=== PATIENT | female | born 1950 | race Two or more races ===

== ENCOUNTER 2021-06-02 15:20 | Outpatient (REF) | payer MEDICARE, SELFPAY ==
[2021-06-02 15:28] LABS: Appearance Urine CLOUDY; Color Urine YELLOW; Glucose Urine UA NEG (NEG); Leukocyte Esterase Urine 2+ (NEG); Nitrite Urine NEG (NEG); Specific Gravity - Urine 1.025 (1.005-1.025); UACC Culture Trigger YES; Urine Blood 2+ (NEG); Urine Ketones NEG (NEG); Urine Protein TRACE MG/DL (NEG-TRACE)
[2021-06-02 15:36] LABS: WBC Urine TNTC /HPF (0-4)
[2021-06-02 15:37] LABS: RBC Urine 0 /HPF (0)
== END 2021-06-02 15:21 | disposition home or self-care (01) ==
LOC: HO.LNP 15:20
PROVIDERS: Visit Provider Internal Medicine
DX: N39.0 Urinary tract infection, site not specified (principal)
CPT/HCPCS: 81001; 87086

== ENCOUNTER 2021-11-26 09:56 | Emergency (ER) | payer MEDICARE, SELFPAY ==
--- NOTE | ~2021-11-26 | XR_ITS ---
EXAMINATION: XR LUMBOSACRAL SPINE CLINICAL INFORMATION: Left-sided lower back pain after physical therapy. COMPARISON: None TECHNIQUE: Three views of the lumbosacral spine. FINDINGS: There is maintained lumbar lordosis. There is minimal levoscoliosis. There is old compression fracture T12 vertebra with cement augmentation. There is no acute fracture, dislocation. There is loss of L5-S1 disc height. Rest the disc heights are normal. Moderate ventral spondylosis lower dorsal and upper lumbar spine. There is atherosclerotic calcification of abdominal aorta. XR/XR lumbar spine 2-3V IMPRESSION: Old compression fracture T12 vertebra. No acute compression fractures seen. There is minimal scoliosis. Mild central spondylosis lower dorsal and upper lumbar spine.
[2021-11-26 10:29] VITALS: BP 137/67; PULSE 80; RESP 18; TEMP 36.7; O2SAT 99; BMI 20.3
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
== END 2021-11-26 12:54 | disposition home or self-care (01) ==
PROVIDERS: Emergency Provider Emergency Medicine; PCP Internal Medicine
DX: S39.012A Strain of muscle, fascia and tendon of lower back, initial encounter (principal); X50.0XXA Overexertion from strenuous movement or load, initial encounter; Y93.9 Activity, unspecified; Y92.009 Unspecified place in unspecified non-institutional (private) residence as the place of occurrence of the external cause; Y99.9 Unspecified external cause status
CPT/HCPCS: 72100; 99283

== ENCOUNTER 2021-12-24 12:14 | Outpatient (REF) | payer MEDICARE, SELFPAY ==
[2021-12-24 13:57] LABS: MANUAL DIFF FLAG NO
[2021-12-24 14:14] LABS: Alanine Aminotransferase 17 U/L (0-31); Albumin Level 4.5 g/dL (3.5-5.0); Alkaline Phosphatase 55 U/L (39-117); Anion Gap 14 (12-20); Aspartate Amino Transferase 19 U/L (5-31); Bilirubin Total 0.5 mg/dL (0.0-1.0); Blood Urea Nitrogen 17 mg/dL (9-16); C Reactive Protein 0.09 mg/dL (< or = 0.50); Calcium 10.4 mg/dL (8.4-10.2); Carbon Dioxide 26 mmol/L (22-29); Chloride 105 mmol/L (96-108); Estimated Glomerular Filt Rate > 60; Glucose Random 107 mg/dL (60-115); Potassium 4.3 mmol/L (3.3-5.1); Sodium 141 mmol/L (135-145)
[2021-12-24 14:34] LABS: Ferritin 33 ng/mL (10-250); TSH reflex Free T4 1.57 uIU/mL (0.32-4.0); Vitamin D 25-OH Total 31.6 ng/mL (>30)
[2021-12-24 14:43] LABS: Basophils Absolute Auto 0.1 X10*3/uL (0.0-0.2); Basophils Percent Auto 0.7 % (0-2); Eosinophils Absolute Auto 0.4 X10*3/uL (0.0-0.4); Eosinophils Percent Auto 4.2 % (0-4); Hematocrit 38.7 % (37.0-47.0); Hemoglobin 12.2 g/dl (12.0-16.0); Imm Gran Abs Auto 0.02 X10*3/uL (0.00-0.03); Imm Gran Pct Auto 0.2 % (0.0-0.4); Lymphocytes Absolute Auto 1.7 X10*3/uL (1.2-4.9); Lymphocytes Percent Auto 20.5 % (20-40); Mean Corpuscular HGB Conc 31.5 g/dl (31.0-35.0); Mean Corpuscular Hemoglobin 30.3 pg (27.0-33.0); Mean Platelet Volume 10.3 fL (9.4-12.3); Monocytes Absolute Auto 0.7 X10*3/uL (0.1-1.2); Monocytes Percent Auto 7.9 % (2-11); Neutrophils Absolute Auto 5.6 x10*3/uL (2.0-8.3); Neutrophils Percent Auto 66.5 % (45-73); Platelet Count 307 X10*3/uL (160-400); Red Blood Count 4.03 X10*6/uL (4.20-5.50); Red Cell Distribution Width 12.7 % (11.0-16.0); White Blood Count 8.4 X10*3/uL (4.8-10.8)
[2021-12-24 15:01] LABS: Appearance Urine CLEAR; Color Urine YELLOW; Glucose Urine UA NEG (NEG); Leukocyte Esterase Urine NEG (NEG); Nitrite Urine NEG (NEG); PH 5.5 (5.0-8.0); Specific Gravity - Urine >= 1.030 (1.005-1.025); Urine Blood NEG (NEG); Urine Ketones 5 MG/DL (NEG); Urine Protein NEG (NEG-TRACE)
[2021-12-25 14:36] LABS: Transglutaminase Ab IgG <1.0 U/mL; Transglutaminase IgA <1.0 U/mL
== END 2021-12-24 12:15 | disposition home or self-care (01) ==
LOC: CF 12:14
PROVIDERS: PCP Internal Medicine; Referring Provider Internal Medicine; Visit Provider Internal Medicine Gastroenterology
DX: R10.33 Periumbilical pain (principal); R30.0 Dysuria; N39.0 Urinary tract infection, site not specified; K75.81 Nonalcoholic steatohepatitis (NASH); G89.29 Other chronic pain; R10.30 Lower abdominal pain, unspecified; M81.0 Age-related osteoporosis without current pathological fracture
CPT/HCPCS: 36415; 80053; 81003; 82306; 82728; 84443; 85025; 86140; 86364; 99202

== ENCOUNTER 2022-01-11 08:01 | Outpatient (REF) | payer MEDICARE, SELFPAY ==
--- NOTE | ~2022-01-11 | US_ITS ---
EXAMINATION: US ABDOMEN COMPLETE CLINICAL INFORMATION: Postprandial abdominal pain, lower abdomen. COMPARISON: None TECHNIQUE: Real-time imaging of the abdominal viscera. FINDINGS: PANCREAS: Pancreas could not be seen secondary to overlying bowel gas. ABDOMINAL AORTA: The proximal and distal abdominal aorta appear normal but the mid abdominal aorta was secured by bowel gas. INFERIOR VENA CAVA: Visualized portions are normal. LIVER: The liver is normal in size. The liver contour is normal. Parenchymal echogenicity is normal. No focal hepatic lesion. There is no intrahepatic biliary duct dilatation seen. GALLBLADDER: The gallbladder was not seen. COMMON BILE DUCT: Normal in caliber measuring 1.3 cm in diameter. RIGHT KIDNEY: There is a lower pole Bosniak class I 2.6 cm parapelvic cyst. No solid renal masses. No hydronephrosis or renal calculi. The kidney measures 10.1 cm in maximum dimension. LEFT KIDNEY: Normal. No hydronephrosis. No renal calculi or focal parenchymal lesions. The kidney measures 7.9 cm in maximum dimension. SPLEEN: Normal. The spleen measures 9.2 cm in maximum dimension. FREE FLUID: None. US/US abdomen complete IMPRESSION: The pancreas could not be seen. No significant abnormality is detected.
== END 2022-01-11 08:02 | disposition home or self-care (01) ==
LOC: HO.US 08:01
PROVIDERS: Visit Provider Internal Medicine Gastroenterology
DX: R10.30 Lower abdominal pain, unspecified (principal)
CPT/HCPCS: 76700

== ENCOUNTER 2022-05-24 10:05 | Outpatient (REF) | payer OTHER, SELFPAY ==
[2022-05-24 12:00] LABS: Phosphorus 2.9 mg/dL (2.7-4.5)
[2022-05-24 12:04] LABS: Appearance Urine Clear; Color Urine Yellow; Glucose Urine UA Negative (Negative); Leukocyte Esterase Urine Negative (Negative); Nitrite Urine Negative (Negative); Urine Blood Negative (Negative); Urine Ketones Negative (Negative); Urine Protein Negative (Neg-Trace)
[2022-05-29 16:52] LABS: Calcium, Ionized 4.9 mg/dL (4.8-5.6)
== END 2022-05-24 10:06 | disposition home or self-care (01) ==
LOC: HO.LAB 10:05
PROVIDERS: PCP Internal Medicine; Visit Provider Internal Medicine Gastroenterology
DX: R10.30 Lower abdominal pain, unspecified (principal); N39.0 Urinary tract infection, site not specified; E83.52 Hypercalcemia; R30.0 Dysuria
CPT/HCPCS: 36415; 81003; 82330; 84100; 99212

== ENCOUNTER 2022-08-07 09:53 | Outpatient (REF) | payer MEDICARE, SELFPAY ==
--- NOTE | ~2022-08-07 | US_ITS ---
EXAMINATION: US ABDOMEN COMPLETE CLINICAL INFORMATION: Lower abdominal pain, unspecified. COMPARISON: Ultrasound abdomen complete 01/11/2022. TECHNIQUE: Real-time imaging of the abdominal viscera. Technically difficult study secondary to bowel gas. FINDINGS: PANCREAS: Portions are obscured by overlying bowel gas with visualized portions appearing unremarkable. ABDOMINAL AORTA: The proximal, mid, and distal segments are normal in caliber. INFERIOR VENA CAVA: Visualized portions are normal. LIVER: The liver is normal in size. The liver contour is normal. Parenchymal echogenicity is normal. No focal hepatic lesion. No significant intrahepatic bile duct dilatation is appreciated. GALLBLADDER: Surgically absent. COMMON BILE DUCT: Normal in caliber measuring 1.6 cm in diameter. RIGHT KIDNEY: There is a 2.7 x 3.0 x 2.9 cm mildly complex cyst with thin septation and no internal vascularity or mural nodule with the appearance of a Bosniak 2 cyst. Follow-up is not necessary. No hydronephrosis or renal calculi. The kidney measures 9.6 cm in maximum dimension. LEFT KIDNEY: Normal. No hydronephrosis. No renal calculi or focal parenchymal lesions. The kidney measures 8.4 cm in maximum dimension. SPLEEN: Normal. The spleen measures 9.8 cm in maximum dimension. FREE FLUID: None. US/US abdomen complete IMPRESSION: Right renal Bosniak 2 cyst.
== END 2022-08-07 09:54 | disposition home or self-care (01) ==
LOC: HO.HMGCX 09:53
PROVIDERS: Visit Provider Internal Medicine Gastroenterology
DX: R10.30 Lower abdominal pain, unspecified (principal)
CPT/HCPCS: 76700

== ENCOUNTER → 2022-09-23 10:40 | Outpatient (BNVA) | payer MEDICARE, SELFPAY | PROVIDERS: PCP Internal Medicine; Referring Provider Internal Medicine; Visit Provider Internal Medicine Gastroenterology | DX: M54.50 Low back pain, unspecified (principal) | CPT/HCPCS: 99212 ==

== ENCOUNTER 2023-01-11 10:39 | Outpatient (REF) | payer MEDICARE, SELFPAY ==
[2023-01-11 11:24] LABS: Appearance Urine Clear; Color Urine Yellow; Glucose Urine UA Negative (Negative); Leukocyte Esterase Urine Negative (Negative); Nitrite Urine Negative (Negative); Urine Blood Negative (Negative); Urine Ketones Negative (Negative); Urine Protein Negative (Neg-Trace)
== END 2023-01-11 10:40 | disposition home or self-care (01) ==
LOC: HO.LAB 10:39
PROVIDERS: PCP Internal Medicine; Visit Provider Internal Medicine Gastroenterology
DX: R30.0 Dysuria (principal)
CPT/HCPCS: 81003

== ENCOUNTER 2023-02-17 09:21 | Outpatient (AMB) | payer MEDICARE, SELFPAY ==
[2023-02-17 10:11] VITALS: BP 157/77; PULSE 81; BMI 22.8
--- NOTE | 2023-02-17 10:11 | MHC.OFFVIS ---
Intake Vital Signs 02/17/23 10:11 Height 5 ft 6 in Weight 141 lb 1.533 oz BMI 22.8 BP 157/77 H Blood Pressure Location Lt brachial Position Sitting Pulse 81 Intake Visit Reasons: 5 month fu Intake Note: Elizabeth presents in the office as a 5 month follow up. Allergies No Known Allergies [No Known Allergies*] Allergy (Verified 09/23/22 10:46) HPI 5 month fu HPI Details 72 yr old f here for f/u RECAP: She had been having 2-3 yrs hx of lower abdominal pain it is worse after food feesl like a squeezing, can be 7/10 in severity not every day sometimes she had colonoscopy and it was normal in recent past LABS: 12/2021 CBC, nml BMp nml LFt nml celiac panel neg mild raised Ca US 01/2022: right sided kidney cyst 2 cm otherwise nml, pancreas not seen Rept US 08/01 Bosniak 2 cyst, no need for further f/u per radiology, stable INTERIM:\ she is doing well she has no back or abdominal pain she has no issues with urination appetite is good\ no nausea or vomiting no diarrhea or constipation EXAM: GENERAL: The patient is well developed and nontoxic. BP slightly high, bus hse thinks due to her baseline shoulder discomfort VITAL SIGNS:see workflow HEENT: Nonicteric sclerae, PERRLA, EOMI. Oropharynx clear. Moist mucous membranes. Conjunctivae appear well perfused. No thyroid mass. CHEST: Chest wall is nontender. HEART: Regular rate and rhythm without murmurs. LUNGS: Clear to auscultation bilaterally. ABDOMEN: Soft, positive bowel sounds, nontender, no organomegaly. SKIN: No rash, no excessive bruising, petechiae, or purpura. NEUROLOGIC: Cranial nerves II-XII intact without motor/sensory deficit. Psych: nml affect, MS: kyphotic spine A/P: 1/Doing well, no acute complaints today 2/ Renal cysts, stable Plan: 1/ No action, she was requesting a course of cipro on stnad by just in case of return of urine sx, I sent her a script on that 2/ Reminded of importance of taking Vit D and Ca supplements 3/ son will help her to monitor her BP at home, if consistently high will f/u with PCP? [facility] Medical History (Updated 02/17/23 @ 10:19 by Anna Marie Coates MD) Arthritis Back pain Diabetes Hypertension Surgical History (Updated 05/24/22 @ 10:15 by ANAY Ash) Hx of colonoscopy Social History Patient Tobacco Use Status: Never used Tobacco Advance Directives Date on File: 11/26/21 Physical Exam Vital Signs: Last Vital Signs Pulse 81 02/17/23 10:11 BP 157/77 H 02/17/23 10:11 BMI result Body Mass Index 22.8 Assessment & Plan Assessment & Plan (1) Renal cyst: Code(s): N28.1 - Cyst of kidney, acquired (2) Hypertension: Code(s): I10 - Essential (primary) hypertension Medications: Refilled ciprofloxacin HCl 500 mg PO BID 14 tabs 0RF Coding Level of Care Code Est Pt Level 3 (81271) Diagnoses Renal cyst N28.1 Hypertension I10
== END 2023-02-17 11:29 | disposition home or self-care (01) ==
LOC: HO.HGI 09:23
PROVIDERS: PCP Internal Medicine; Visit Provider Internal Medicine Gastroenterology
DX: N28.1 Cyst of kidney, acquired (principal); I10 Essential (primary) hypertension
CPT/HCPCS: 99213

== ENCOUNTER → 2023-02-17 09:21 | Outpatient (BNVA) | payer MEDICARE, SELFPAY | PROVIDERS: PCP Internal Medicine; Visit Provider Internal Medicine Gastroenterology | DX: N28.1 Cyst of kidney, acquired (principal); I10 Essential (primary) hypertension | CPT/HCPCS: 99212 ==

== ENCOUNTER 2024-09-13 09:55 | Outpatient (REF) | payer OTHER, SELFPAY ==
--- OUTSIDE RECORDS SUMMARY | 2024-09-13 10:32 | XMS_ITS | Encounter Summary ---
Author Organization [facility] Address [address] [place] [address] Care Team Providers Care Car Parker Name Role Phone Mitzi Cross MD Primary Care Prov ider Reason for Visit * Reason Onset Date Comments Medication Problem 09/10/2024 Oxycodone 5 m g Encounter Details Date Type Department Care Team ([facility] st Contact Info) Description 09/10/2024 Telephone Adult Medicine - [place] [address] [place] [id number] Mitzi Cross MD [address] [place] [address] Medication Problem (Oxycodone 5 mg ) Social History Tobacco Use Types Packs/Day Years Used Date Smoking Tobacco: Never Smokeless Tobacco: Never Alcohol Use Standard Drinks/Week Comments No 0 (1 standard drink = 0.6 oz pur e alcohol) Sex and Gender Information Value Date Recorded Sex Assigned at Not on file Gender Identity Not on file Sexual Orientation Not on file Job Start Date Occupation Industry Not on file Not on file Not on file documented as of this encounter Ordered Prescriptions Prescription Sig Dispensed Refills Start Date End Da te oxyCODONE (ROXICODONE) 5 mg immediate release tablet Take 1 tablet (5 mg total) by mouth every 8 (eight) hours if needed for severe pain. Max Daily Amount: 15 mg 84 tablet 09/10/2024 documented in this encounter Progress Notes * Mitzi Clemens MA - 09/10/2024 1:51 PM EST Noted. Called and advised patient's son Jacob. He already picked this up at the pharmacy. * Mitzi Cross MD - 09/10/2024 11:22 AM EST Okay we will add 5 mg 3 times daily as needed for breakthrough pain to her regimen and stop the Lunesta * Mtizi Clemens MA - 09/10/2024 10:47 AM EST Spoke with patient's son Jacob - states 2 weeks ago he was speaking with about himself and then it was discussed aboutpts mother regarding the Lunesta and how this medication is not covered by insurance. Jacob states mentioned Morphine and another medication but pts son declined for those to be ordered. Did not want his mom on those medications. Jacob states it was then discussed that Oxycodone 5 mg can be added to help with breakthrough pain and that this would be done the next time pt is due for the next refill which was 09/10/24. I do not see documentation in [facility] chart - Pts son does use his mychart for his mother which is where miscommunication happens. Checked chart and Jacob did send a Personetat message but I do not see a phone call documented. Jacob states he didspeak with . * Gaby Vuong - 09/10/2024 10:42 AM EST Pt's son insist that they were called @ home and spoke with pcp in regards to getting the 5mg for breakthrough pain. He'd like a c/b @ [phone] * Mitzi Cross MD - 09/10/2024 10:31 AM EST I have not discussed anything about her medicines with her. * Mitzi Clemens MA - 09/10/2024 10:09 AM EST Oxycodone 5 mg was being ordered by Ortho. Pt has not received this medication since May 2024. It was mentioned in last appt notes from Ortho 05/31/24 ( 20 mg tablets sent to pharmacy 3 times a day for effective end date is 06/11/2024 to be transition to PCP patient will have finished just adjusted regimen and should completely discontinue 5 mg tablets in addition at that time ) - Pt seen by Сергей Dixon PA-C on 08/02/24, and pts son was advised no changes would be made and this needs to be discussed with PCP. Next appt is on 11/02/24 with Shlomo Nicholson PA-C Do you want patient to schedule an appt with you instead ? And was it discussed at some point that the Oxycodone 5 mg was going to be added ? I do not see anydocumentation and it is not documented in [facility] in FYI * Magno Plascencia - 09/10/2024 9:35 AM EST Refills on Current Medication List Does patient have an upcoming appointment? 11/02/2024 documented in this encounter Plan of Treatment Upcoming Encounters Date Type Department Care Team (Late st Contact Info) Description 09/29/2024 10:15 AM EST Office Visit Orthopedic Surgery - [place] [address] [phone] Janka Austin DPM [address] [address] 11/02/2024 9:30 AM EDT Office Visit Adult Medicine [facility] [address] [place] [phone] Shlomo Nicholson PA [address] [place] [address] documented as of this encounter Visit Diagnoses Not on filedocumented in this encounter Care Teams Car Parker Relationship Specialty Start Date End Date Mitzi Cross MD [address] [place] [id number] PCP - General Internal Medicine 07/15/12 documented as of this encounter
--- OUTSIDE RECORDS SUMMARY | 2024-09-13 10:32 | XMS_ITS | Clinical Summary ---
Author Organization 175 [facility] Address [address] [place] [address] Phone Care Team Providers Care Sash Repairer Name Role Phone Mitzi Cross MD Primary Care Prov ider Allergies No known active allergies Medications Medication Sig Dispensed Refills Start Date End Date Status alcohol swabs (BD Alcohol Swabs) pads, medicated USE 1 EACH TOPICALLY 2 TO 4 TIMES DAILY. 04/15/2024 Active blood-glucose meter (ONETOUCH VERIO IQ METER [facility] [place] Test blood sugars 2 times a day 03/12/2023 Active calcium amino acid chelate 200 mg calcium tablet Take by mouth. Active DISPOSABLE GLOVES [facility] [place] 3 boxes of non latex gloves with 11 refills to use for life 04/25/2023 Active incontinence pad, liner, disp (Poise Pantiliners) pad Use daily 05/06/2013 Active lancets (OneTouch Delica Plus Lancet) 33 gauge Apply 1 Device topically 2 times daily. 04/15/2024 Active blood sugar diagnostic (OneTouch Verio test strips) test strip APPLY 1 STRIP TOPICALLY 3 TIMES DAILY. 06/01/2024 Active ammonium lactate (LAC-HYDRIN) 12 % lotion Apply to soles of feet daily. At night wear socks to bed 12/06/2021 Active calcium carbonate 1,500 mg (600 mg elemental calcium) tablet Take 1 Tablet by mouth daily. 01/23/2024 Active calcium carbonate-vitami n D3 600 mg-5 mcg (200 unit) per tablet Take 1 Tablet by mouth daily. 03/16/2024 Active cholecalciferol (VITAMIN D-3) 50 mcg (2,000 unit) capsule Take by mouth. Active clotrimazole (LOTRIMIN) 1 % cream Apply to skin and toenails daily for 12 weeks 09/18/2023 Active dimethicone-ZnOx -vit A-D-aloe (A and D Diaper Rash Cream) 1-10 % cream Apply 1.5 oz topically daily. Apply a small amount before wearing a diaper to protect the skin 05/27/2024 Active eszopiclone (LUNESTA) 1 mg tablet TAKE 1 TABLET BY MOUTH EVERY DAY AT BEDTIME NEEDED FOR INSOMNIA 06/07/2024 Active fluticasone propionate (FLONASE) 50 mcg/actuation nasal spray SPRAY 2 SPRAYS INTO EACH NOSTRIL EVERY DAY 03/08/2022 Active ketotifen fumarate (ZADITOR) 0.035 % ophthalmic solution INSTILL 1-2 DROPS TO THE EYE 2 TIMES DAILY. 05/13/2023 Active lidocaine (LIDODERM) 5 % patch Place 3 Patches onto the skin every 12 hours. Apply for no more than 12 hours in any 24 hour period. 08/16/2022 Active NIFEdipine (ADALAT CC) 30 mg 24 hr tablet Take 1 Tablet by mouth daily. 05/19/2024 Active oxyCODONE (ROXICODONE) 5 mg immediate release tablet Take one tablet every 4 hours as needed for pain 05/20/2024 Active oxyCODONE (ROXICODONE) 5 mg immediate release tablet Take one tablet every 6 hours as needed for pain 06/01/2024 Active pregabalin (Lyrica) 50 mg capsule Take 1 Cap by mouth 2 times daily for 90 days. 08/30/2020 Active senna 8.6 mg tablet TAKE 4 TABLETS BY MOUTH EVERY EVENING 05/13/2024 Active tiZANidine (ZANAFLEX) 2 mg tablet Take 1 Tablet by mouth every 8 hours as needed (for muscle spasm) for up to 10 days. 05/07/2023 Active lisinopriL (PRINIVIL,ZESTRI L) 2.5 mg tablet TAKE 1 TABLET BY MOUTH EVERY DAY 90 tablet 1 09/06/2024 Active metFORMIN XR (GLUCOPHAGE-XR) 500 mg 24 hr tabletIndication s:Type 2 diabetes mellitus with diabetic nephropathy (CMS/HCC) TAKE 1 TABLET BY MOUTH EVERY DAY WITH BREAKFAST 90 tablet 1 09/06/2024 Active darifenacin (ENABLEX) 7.5 mg 24 hr tablet TAKE 1 TABLET BY MOUTH EVERY DAY 90 tablet 1 09/06/2024 Active oxyCODONE (ROXICODONE) 20 mg immediate release tablet Take 1 tablet (20 mg total) by mouth 3 (three) times a day for 28 days. Max Daily Amount: 60 mg 84 tablet 09/10/2024 5 Active lovastatin (MEVACOR) 40 mg tabletIndication s:Pure hypercholesterol emia, unspecified TAKE 1 TABLET BY MOUTH EVERYDAY AT BEDTIME 90 tablet 1 09/09/2024 Active oxyCODONE (ROXICODONE) 5 mg immediate release tablet Take 1 tablet (5 mg total) by mouth every 8 (eight) hours if needed for severe pain. Max Daily Amount: 15 mg 84 tablet 09/10/2024 Active darifenacin (ENABLEX) 7.5 mg 24 hr tablet Take 1 Tablet by mouth daily. 03/16/2024 5 Discontinued lisinopriL (PRINIVIL,ZESTRI L) 2.5 mg tablet Take 1 Tablet by mouth daily. 03/16/2024 5 Discontinued lovastatin (MEVACOR) 40 mg tablet TAKE 1 TABLET BY MOUTH EVERYDAY AT BEDTIME 04/20/2024 5 Discontinued metFORMIN XR (GLUCOPHAGE-XR) 500 mg 24 hr tablet TAKE 1 TABLET BY MOUTH EVERY DAY WITH BREAKFAST 03/16/2024 5 Discontinued oxyCODONE (ROXICODONE) 20 mg immediate release tablet Take 1 tablet (20 mg total) by mouth 3 (three) times a day for 28 days. Max Daily Amount: 60 mg 84 tablet 08/13/2024 5 Discontinued([place]o [place]) Active Problems Problem Noted Date Diagnosed Date Fibromyalgia 12/15/2023 Chronic pain syndrome 01/25/2022 Foreign body (FB) in soft tissue 01/16/2022 Compression fracture of thoracic spine, non-trau matic 06/20/2015 Allergic rhinitis 05/02/2014 Pedal edema 05/02/2014 Vitamin D deficiency 09/27/2011 Overview (06/23/2024): 16, 08/2011, on weekly vit d Incontinence of urine 01/24/2011 Internal hemorrhoids 12/10/2010 Overview (06/23/2024): Incidental finding on colonoscopy Osteopenia 06/28/2010 Overview (06/23/2024): Last bone density 01/19/08, 08/27/11 Osteoarthritis 08/01/2009 Overview (06/23/2024): Sees Dr Thompson at arthritis treatment center. 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 Encounters Date Type Department Care Team Description 09/10/2024 Telephone Adult Medicine [address] [phone] Mitzi Cross MD Medication Problem (Oxycodone 5 mg ) 09/02/2024 Telephone Adult [facility] [address] [place] [phone] Mitzi Cross MD Fitting for DME 08/09/2024 Telephone Adult [address] [phone] Shlomo Nicholson PA Hypertension 08/02/2024 10:30 AM EST Office Visit Adult [address] [phone] Сергей Dixon PA Chronic pain syndrome (Primary Dx); Fibromyalgia; Essential hypertension, benign; Hypercholesteremia; Type 2 diabetes mellitus with diabetic nephropathy, without long-term current use of insulin ([facility]); Osteoporosis, unspecified osteoporosis type, unspecified pathological fracture presence 06/17/2024 Telephone Adult Medicine [address] [phone] Savita Escobar MA Fitting for DME from Last 3 Months Immunizations Name Administration Dates Next Due H1N1 Inj Preservative Free 06/22/2009 Influenza Quadravalent, 0.5m l (Fluad) 65yo and older 04/24/2022 Influenza Quadravalent, 0.5m l (Fluzone High-dose) 65yo and older 04/02/2021 Influenza trivalent, 0.5mL ( Fluad) 65yo and older 04/15/2024,05/07/2023,05/10/2022,04/08,04/10/2018,03/29/2018,04/18/2017 ,04/05/2017,04/14/2016,04/19/2015,09/2010,04/13/2010,05/06/2009 Influenza trivalent, 0.5mL ( Fluzone High-dose) 65yo and older 04/15/2024,05/07/2023,03/29/2018,04/18,04/05/2017,04/14/2016 Influenza trivalent, with pr eservative (Fluzone; Afluria) 6mo and older 04/10/2018,04/19/2015,04/12/2011,04/13,05/06/2009 Moderna SARS-CoV-2 COVID-19, mRNA, LNP-S, preservative free 07/10/2021 PPD Test 08/01/2009 Pneumococcal conjugate 13 va lent (Prevnar 13, PCV13) 2mo and older 09/08/2017 Pneumococcal conjugate 20 va lent (Prevnar 20, PCV 20) 2mo and older 03/16/2024 Pneumococcal polysaccharide 23 valent (Pneumovax 23) 2yo and older 06/28/2010 RSV, bivalent, protein subun it RSVpreF, 0.5mL, Preservative Free (Arexvy) 60yo and older 09/05/2023 Td Tetanus diptheria (Tdvax) 7yo and older 08/16/2022 Tdap Tetanus diptheria acell ular pertussis (Boostrix; Adacel) 7yo and older 09/26/2008 Zoster recombinant (Shingrix ) 19yo and older 03/29/2018,09/26/2017 Surgical History Surgery Date Site/Laterality Comments TUBAL LIGATION PROCEDURE: HISTORICAL TUBAL LIGATION KIDNEY STONE SURGERY PROCEDURE: [place] NEPHROLITHOTOMY REMOVAL CALCULUS COLONOSCOPY 01/19/08 PROCEDURE: HISTORICAL COLONOSCOPY; COMMENT: int hemmorrhoids Dr Cruz CHOLECYSTECTOMY PROCEDURE: HISTORICAL CHOLECYSTECTOMY OTHER SURGICAL HISTORY 10/21/2012 PROCEDURE: HISTORICAL VAGINAL HYSTERECTOMY WITH BSO; COMMENT: LAVH/BSO with anterior repair performed by Dr. Cullen COLONOSCOPY 07/25/17 Catie PROCEDURE: OUTSIDE COLONOSCOPY; COMMENT: tics and hemorrhoids; would not repeat routinely Medical History Medical History Date Comments DM (diabetes mellitus) (CMS/HCC) 3 years DX:DM (diabetes mellitus) ([facility]); COMMENT: diet controlled Essential hypertension, benign 5 years D X:Essential hypertension, benign Dyslipidemia DX:Dyslipidemia; COMMENT: on statin Osteoarthritis DX:Osteoarthriti s Osteoporosis DX:Osteoporosis; COMMENT: Last BMD in jul 2008 Family History Medical History Relation Name Comments Arthritis Mother Diabetes Mother Other: dementia Mother Lung cancer Sister 1 Alzheimer's disease Sister 2 Emphysema Son Relation Name Status Comments Brother 1 (Age 30s) CAD Brother 2 Alive Brother 3 Alive Daughter Alive Father (Age 70) Mother (Age 94) cad, DM Sister 1 alzhiemer's Sister 2 Son Alive Social History Tobacco Use Types Packs/Day Years [...] file Not on file Not on file Obstetrics History Last Filed Vital Signs Vital Sign Reading Time Taken Comments Blood Pressure 140/64 08/02/2024 10:24 AM EST Pulse 71 08/02/2024 10:24 AM EST Temperature 37.1 ??C (98.7 ??F) 08/02/2024 10:[address] Respiratory Rate - - Oxygen Saturation - - Inhaled Oxygen Concentration - - Weight 62.1 kg (137 lb) 08/02/2024 10:24 AM EST Height 170.2 cm (5' 7 ) 08/02/2024 10:24 AM EST Body Mass Index 21.46 08/02/2024 10:24 AM EST Plan of Treatment Upcoming Encounters Date Type Department Care Team (Late st Contact Info) Description 09/29/2024 10:15 AM EST Office Visit Orthopedic Surgery - [place] [address] [phone] Janak Austin, DPM [address] [place] [address] 11/02/2024 9:30 AM EDT Office Visit Adult Medicine - [place] [address] [place] [phone] Shlomo Nicholson PA [address] [place] [address] Health Maintenance Due Date Last Done Comments Diabetes: Annual Retina Eye Exam 1960 Hepatitis C Screening 07/20/2022 Osteoporosis Screening (Bone Density Screening) 07/20/2022 Social Influencers of Health Screening 07/20/2022 Medicare Annual Wellness Visit 11/28/2023 11/27/2022 COVID-19 Vaccine ( season) 2024 07/10/2021, 10/22/2020, 09/24/2020 Diabetes: Blood Sugar Control Test (HGBA1C) 01/31/2025 08/02/2024, 03/16/2024, 03/16/2024 Depression Screening 03/16/2025 03/16/2024 Diabetes: Annual Urine Albumin-Creatinine Ratio (uACR) 03/16/2025 03/16/2024 Diabetes: Annual Foot Exam 03/16/2025 03/16/2024 Falls Risk Assessment 03/16/2025 03/16/2024 Diabetes: Annual GFR (Glomerular Filtration Rate) 08/02/2025 08/02/2024, 03/16/2024, 03/16/2024 Hypertension/CHF/CAD Annual BMP Blood Test 08/02/2025 08/02/2024, 03/16/2024, 03/16/2024 Cholesterol Screening (Lipid Panel) 03/16/2029 03/16/2024, 03/16/2024 Colorectal Cancer Screening: Colonoscopy 01/16/2030 01/17/2020 DTaP,Tdap,and Td Vaccines (3 - Td or Tdap) 08/16/2032 08/16/2022, 09/26/2008 Zoster Vaccines Completed 03/29/2018, 09/26/2017 Breast Cancer Screening Discontinued 07/17/20, 10/04/2020, 09/30/2019, Additional history exists RSV Immunization Patients 60+ Years Old Completed 09/05/2023 Pneumococcal Vaccine: 65+ Years Completed 03/16/2024, 09/08/2017, 06/28/2010 Influenza Vaccine Completed 04/15/2024, , 05/07/2023, Additional history exists HIB Vaccines Aged Out No longer eligi ble based on patient's age to complete this topic HPV Vaccines Aged Out No longer eligi ble based on patient's age to complete this topic Hepatitis A Vaccines Aged Out No long er eligible based on patient's age to complete this topic Hepatitis B Vaccines Aged Out No long er eligible based on patient's age to complete this topic IPV Vaccines Aged Out No longer eligi ble based on patient's age to complete this topic MMR Vaccines Aged Out No longer eligi ble based on patient's age to complete this topic Meningococcal ACWY Vaccine Aged Out N o longer eligible based on patient's age to complete this topic RSV Immunization Patients Under 20 months Aged Out No longer eligible based on patient's age to complete this topic Varicella Vaccines Aged Out No longer eligible based on patient's age to complete this topic Procedures Procedure Name Priority Date/Time Associated Diagnosis Comments HEMOGLOBIN A1C Routine 08/02/2024 11:21 AM EST Essential hypertension, benign Hypercholesteremia Type 2 diabetes mellitus with diabetic nephropathy, without long-term current use of insulin ([facility]) COMPREHENSIVE METABOLIC PANEL Routine 08/02/2024 11:21 AM EST Essential hypertension, benign Hypercholesteremia Type 2 diabetes mellitus with diabetic nephropathy, without long-term current use of insulin ([facility]) EXTERNAL CLINICAL LAB 07/28/2024 DEPRESSION SCREENING Routine 03/16/2024 FALLS RISK ASSESSMENT Routine 03/16/2024 URINE ALBUMIN CREATININE RATIO Routine 03/16/2024 LIPID PANEL Routine 03/16/2024 DIABETES FOOT EXAM Routine 03/16/2024 SOLOMON SCREENING DIGITAL Routine 07/17/2022 5:10 PM EST Encounter for screening mammogram for malignant neoplasm of breast HM COLONOSCOPY Routine 01/17/2020 from Last 3 Months or Most Recently Relevant to Health Maintenance Results * Hemoglobin A1c (08/02/2024 11:21 AM EST) Hemoglobin A1C 6.2 <6.5 % LAB CHEMISTRY METHOD 08/02/2024 9:19 PM EST [facility] Mean Bld Glu Estim. 131 mg/dL LAB CHEMISTRY METHOD 08/02/2024 9:19 PM EST [facility] Blood Venous blood specimen / Unknown Venipuncture / Unknown 08/02/2024 11:21 AM EST 08/02/2024 11:21 AM EST Сергей ARCINIEGA LAB BLOOD ORDERABLES [facility] [address] [place] [address], * Comprehensive metabolic panel (08/02/2024 11:21 AM EST) Pathologist [facility] Sodium 139 133 - 145 mmol/L LAB CHEMISTRY METHOD 08/02/2024 3:48 PM [facility] Potassium 4.2 3.5 - 5.5 mmol/L LAB CHEMISTRY METHOD 08/02/2024 3:48 PM [facility] Chloride 103 96 - 110 mmol/L LAB CHEMISTRY METHOD 08/02/2024 3:48 PM [facility] CO2 29 21 - 32 mmol/L LAB CHEMISTRY METHOD 08/02/2024 3:48 PM [facility] Anion Gap 7 3 - 11 LAB CHEMISTRY METHOD 08/02/2024 3:48 PM [facility] Glucose 90 70 - 100 mg/dL LAB CHEMISTRY METHOD 08/02/2024 3:48 PM [facility] BUN 23 5 - 25 mg/dL LAB CHEMISTRY METHOD 08/02/2024 3:48 PM [facility] Creatinine 0.88 0.50 - 1.10 mg/dL LAB CHEMISTRY METHOD 08/02/2024 3:48 PM [facility] eGFR 69 >=60 mL/min/1. 73m2 LAB CHEMISTRY METHOD 08/02/2024 3:48 PM [facility] Comment:Calculation based on the??Chronic Kidney Disease Epidemiology Collaboration (CKD-EPI) equation refit??without adjustment for race. BUN/Creatinine Ratio 26.1 LAB CHEMISTRY METHOD 08/02/2024 3:48 PM [facility] Calcium 9.9 8.5 - 10.5 mg/dL LAB CHEMISTRY METHOD 08/02/2024 3:48 PM [facility] AST (SGOT) 14 10 - 42 unit/L LAB CHEMISTRY METHOD 08/02/2024 3:48 PM [facility] ALT (SGPT) 23 10 - 60 unit/L LAB CHEMISTRY METHOD 08/02/2024 3:48 PM [facility] Alkaline Phosphatase 63 42 - 121 unit/L LAB CHEMISTRY METHOD 08/02/2024 3:48 PM [facility] Total Protein 7.4 6.0 - 8.0 g/dL LAB CHEMISTRY METHOD 08/02/2024 3:48 PM [facility] Albumin 4.2 3.2 - 5.0 g/dL LAB CHEMISTRY METHOD 08/02/2024 3:48 PM [facility] Total Bilirubin 0.4 0.0 - 1.4 mg/dL LAB CHEMISTRY METHOD 08/02/2024 3:48 PM [facility] Blood Venous blood specimen / Unknown Venipuncture / Unknown 08/02/2024 11:21 AM EST 08/02/2024 11:21 AM EST Сергей ARCINIEGA LAB BLOOD ORDERABLES [facility] [address] [place] [address], * External clinical lab (07/28/2024) Provider [facility] LAB BLOOD ORDERA BLES * HM Urine Albumin Creatinine Ratio (03/16/2024) Pathologist [facility] Urine Albumin Creatinine Ratio Abstracted Historical Provider ON LICENSE OF [facility] * Falls Risk Assessment (03/16/2024) [facility] Falls Risk Assessment Abstracted Historical Provider ON LICENSE OF [facility] * Depression Screening (03/16/2024) [facility] Depression Screening Abstracted Historical Provider ON LICENSE [facility] * Diabetes Foot Exam (03/16/2024) [facility] Diabetes: Annual Foot Exam Abstracted Historical Provider ON LICENSE OF [facility] Lipid panel (03/16/2024) [facility] LDL/HDL Ratio 3 0 - 4 Triglycerides 122 0 - 150 mg/dL Cholesterol 149 0 - 200 mg/dL HDL 50 40 mg/dL LDL Cholesterol 75 0 - 100 mg/dL Blood Venous blood specimen / Unknown Historical Provider LAB BLOOD ORDERAB LES * SOLOMON SCREENING DIGITAL (07/17/2022 5:10 PM EST) Anatomical Region Laterality Modality Mammography 07/17/2022 9:32 AM EST Narrative 07/17/2022 5:10 PM EST [facility] Diagnostic Imaging Department [address] [place] [address] Patient: ??SAVITA HEART ?/Age/Sex: 1950 - 71 - F Unit#: ??[id number] ? Location/Status: ??SPDIMAM/REG CLI ? Mnemonic/Ordering Site: ??DIGSC/SPMAM Ordering Physician: ??MITZI CROSS MD Solomon Screening Digital - 07/17/22 - 950 History: Bilateral breast cancer screening. Technique: ??Digital mammography. Conventional CC and MLO projections with tomosynthesis MLO views and computer aided detection. Comparison: [facility] 10/04/2020, dating back to 07/29/2013. Findings: ?? Breast tissue consists of fatty and fibroglandular elements (category b density) bilaterally (as calculated by [employer] software). There is no suspicious group of microcalcifications, mass, architectural distortion or suspicious change in breast tissue density. Impression: No evidence of malignancy. BIRADS category 1; negative study, 3341F [id number], [id number] Note: Patient information entered into a reminder system with a target due date for the next mammogram: ??CPT II 7025F Dictating Physician: ??DARREN LOCKE MD Electronically Signed by: ??DARREN LOCKE MD Dic Date/Time: ??07/17/22 1708 Sign date/Time: ??07/17/22 1710 Procedure Note Darren Locke MD - 09/12/2023 [facility] Diagnostic Imaging Department [address] [place] [id number] Patient: SAVITA HEART /Age/Sex: 1950 - 71 - F Unit#: [id number] Location/Status: SPDIMAM/REG CLI Mnemonic/Ordering Site: [facility] Ordering Physician: MITZI CROSS MD Solomon Screening Digital - 07/17/22 - 950 History: Bilateral breast cancer screening. Technique: Digital mammography. Conventional CC and MLO projectionswith tomosynthesis MLO views and computer aided detection. Comparison: [facility] 10/04/2020, dating back to 07/29/2013. Findings: Breast tissue consists of fatty and fibroglandular elements (category b density) bilaterally (as calculated by [employer]). There is no suspicious group of microcalcifications, mass, architectural distortion or suspicious change in breast tissue density. Impression: No evidence of malignancy. BIRADS category 1; negative study, 3341F [id number], [id number] Note: Patient information entered into a reminder system with a target duedate for the next mammogram: CPT II 7025F Dictating Physician: DARREN LOCKE MD Electronically Signed by: DARREN LOCKE MD Dic Date/Time: 07/17/22 1708 Sign date/Time: 07/17/22 1710 Mitzi Cross MD IMG BI PRO CEDURES * Colonoscopy (01/17/2020) Colonoscopy No Interpretation , Abstracted Anatomical Region Laterality Modality Other Historical Provider MD PATRICIA Galo from Last 3 Months or Most Recently Relevant to Health Maintenance Advance Directives Documents on File Type Date Recorded Patient Preschool Associate Teacher Expl anation Health Care Decision (hx) 05/25/2015 AD STILL DIRECTIVE Health Care Decision (hx) 05/25/2015 AD STILL DIRECTIVE Health Care Decision (hx) 05/25/2015 AD STILL DIRECTIVE Health Care Decision (hx) 05/25/2015 AD STILL DIRECTIVE Health Care Decision (hx) 05/25/2015 AD STILL DIRECTIVE Health Care Decision (hx) 05/25/2015 AD STILL DIRECTIVE Health Care Decision (hx) 05/25/2015 AD STILL DIRECTIVE Health Care Decision (hx) 05/25/2015 AD STILL DIRECTIVE Health Care Decision (hx) 05/25/2015 AD STILL DIRECTIVE Health Care Decision (hx) 05/25/2015 AD STILL DIRECTIVE Health Care Decision (hx) 05/23/2015 AD STILL DIRECTIVE Health Care Decision (hx) 05/23/2015 AD STILL DIRECTIVE Health Care Decision (hx) 05/23/2015 AD STILL DIRECTIVE Health Care Decision (hx) 05/23/2015 AD STILL DIRECTIVE Health Care Decision (hx) 05/23/2015 AD STILL DIRECTIVE Health Care Decision (hx) 05/23/2015 AD STILL DIRECTIVE Health Care Decision (hx) 05/23/2015 AD STILL DIRECTIVE Health Care Decision (hx) 05/23/2015 AD STILL DIRECTIVE Health Care Decision (hx) 05/23/2015 AD STILL DIRECTIVE Health Care Decision (hx) 05/23/2015 AD STILL DIRECTIVE Care Teams Sash Repairer Relationship Specialty Start Date End Date Mitzi Cross MD [address] [place] [id number] PCP - General Internal Medicine 07/15/12
--- OUTSIDE RECORDS SUMMARY | 2024-09-13 10:32 | XMS_ITS | Encounter Summary ---
Author Organization [employer] Address [address] [place] [address] Care Team Providers Care Regional Engagement Consultant Name Role Phone Mitzi Cross MD Primary Care Prov ider Reason for Visit * Reason Onset Date Comments Fitting for DME 09/02/2024 Encounter Details Date Type Department Care Team ([facility] st Contact Info) Description 09/02/2024 Telephone Adult Medicine - [place] [address] [place] [phone] Mitzi Cross MD [address] [place] [address] Fitting for DME Social History Tobacco Use Types Packs/Day Years [...] on file documented as of this encounter Progress Notes * Elizabeth Escobar MA - 09/06/2024 4:35 PM EST Faxed to [facility]. F. [phone] T. [phone] * Elizabeth Escobar MA - 09/06/2024 12:12 PM EST [facility] never returned my call to verify this order. Placing the order as per Jacob, she was getting 12 packs of wipes a month. I didn't see this in the system, but I guess the supplier store was giving them the 12 packs a month as apposed to 3 packs a month a month. In your in basket. Thank you in advance * Elizabeth Escobar MA - 09/02/2024 10:56 AM EST Received a letter from [employer] stating that they no longer provide services to the pt. I called [facility] and spoke to Radha. She stated the pt is using another company. I called Jacob, son on verbal and stated they are using [employer] now. Jacob stated the pt needs 12 packs of wipes a month. I've never order 12 a month. We wrote 3 packs of wipes a month with 11 refills. Called [facility] and left a detailed message as requested on the voicemail to verify such order. * Aroldo Peacock - 09/02/2024 9:08 AM EST Patient son calling states that the wrong amount of medical supplies are being sent for his mother he states she was previously receiving 12 packs of wipes, 4 boxes of gloves, and 5 AD ointment documented in this encounter Plan of Treatment Upcoming Encounters Date Type Department Care Team (Late st Contact Info) Description 09/29/2024 10:15 AM EST Office Visit Orthopedic Surgery - [place] [address] [phone] Janak Austin, DPM [address] [address] 11/02/2024 9:30 AM EDT Office Visit Adult Medicine - [place] [address] [place] [phone] Shlomo Nicholson PA [address] [place] [address] documented as of this encounter Visit Diagnoses Diagnosis Type 2 diabetes mellitus with diabetic nephropathy, unspecified whether local intermodal truck driver insulin use ([facility])- Primary Urinary incontinence, unspecified type Congestive heart failure, unspecified HF chronicity, unspecified heart failure type ([facility]) documented in this encounter Orders General Supply Count Last Ordered Date First Or dered Date GENERAL SUPPLY 1 09/06/2024 documented in this encounter Care Teams Regional Engagement Consultant Relationship Specialty Start Date End Date Mitzi Cross MD [address] [place] [id number] PCP - General Internal Medicine 07/15/12 documented as of this encounter
[2024-09-13 10:55] LABS: Appearance Urine Cloudy; Color Urine Yellow; Glucose Urine UA Negative (Negative); Leukocyte Esterase Urine Negative (Negative); Nitrite Urine Negative (Negative); Urine Blood Negative (Negative); Urine Ketones Negative (Negative); Urine Protein Negative (Neg-Trace)
== END 2024-09-13 09:56 | disposition home or self-care (01) ==
LOC: HO.LAB 09:55
PROVIDERS: PCP Internal Medicine; Visit Provider Internal Medicine Gastroenterology
DX: R30.0 Dysuria (principal)
CPT/HCPCS: 81003